=== PATIENT | female | born 1985 | race African-American/Black ===

== ENCOUNTER 2018-09-09 01:06 | Emergency (ER) | payer SELFPAY ==
[~2018-09-09] VITALS: Ht 167.6 cm; Wt 92.1 kg
--- OUTSIDE RECORDS SUMMARY | 2018-09-09 01:09 | XMS REPORT | Clinical Summary ---
Author Author [facility] Organization [facility] Address Unknown Phone Unavailable Care Team Providers Care Molecular Physicist Name Role Phone PCP Unavailable Allergies No Known Allergies Medications End Date Status Medication Sig Dispensed Refills Start Date Active acetaminophen (TYLENOL) Take 2 30 tablet 0 325 mg tabletIndications: tablets by 8 , unspecified mouth every 6 gestational age hours as needed for Pain. Active ibuprofen (MOTRIN) 600 mg Take 1 tablet 30 tablet 0 tabletIndications: by mouth 4 8 , unspecified times daily. gestational age Active ferrous sulfate (IRON) Take 1 tablet 90 tablet 2 325 mg (65 mg iron) by mouth 2 8 tabletIndications: Anemia times daily. affecting in third trimester 10/22/2017 simethicone (MYLICON) 80 Chew and 30 tablet 0 mg chewable swallow 1 8 tabletIndications: tablet by Colicky abdominal pain mouth every 6 hours as needed for up to 10 days for Flatulence. 01/12/2018 Discontinued vitamin Take 1 tablet 90 tablet 1 tabletIndications: by mouth 8 care in third daily trimester Pharmacist may select any Vitamin product covered on the patient's insurance for new rxs and refills. 01/12/2018 Discontinued ferrous sulfate (IRON) Take 1 tablet 90 tablet 2 325 mg (65 mg iron) by mouth 8 tabletIndications: Anemia daily (with affecting in breakfast). third trimester 01/12/2018 Discontinued acetaminophen (TYLENOL) Take 2 30 tablet 0 325 mg tabletIndications: tablets by 8 , unspecified mouth every 6 gestational age hours as needed for Pain. 01/12/2018 Discontinued diphenhydrAMINE Take 1 30 capsule 0 (BENADRYL) 50 mg capsule by 8 capsuleIndications: mouth every 4 , unspecified hours as gestational age needed for up to 10 days for Itching or rash. 01/12/2018 Discontinued docusate sodium (COLACE) Take 1 10 capsule 0 100 mg capsule by 8 capsuleIndications: mouth 2 times , unspecified daily for 10 gestational age days. 01/12/2018 Discontinued ferrous sulfate (IRON) Take 1 tablet 90 tablet 2 325 mg (65 mg iron) by mouth 2 8 tabletIndications: Anemia times daily. affecting in third trimester 01/12/2018 Discontinued ibuprofen (MOTRIN) 600 mg Take 1 tablet 30 tablet 0 tabletIndications: by mouth 4 8 , unspecified times daily. gestational age 0701/22/2018 diphenhydrAMINE Take 1 30 capsule 0 (BENADRYL) 50 mg capsule by 8 capsuleIndications: mouth every 4 , unspecified hours as gestational age needed for up to 10 days for Itching or rash. 01/22/2018 docusate sodium (COLACE) Take 1 10 capsule 0 100 mg capsule by 8 capsuleIndications: mouth 2 times , unspecified daily for 10 gestational age days. Active Problems Problem Noted Date 01/12/2018 screening encounter 11/23/2017 care in third trimester 11/22/2017 Resolved Problems Problem Noted Date Resolved Date Colicky abdominal pain 10/12/2017 01/12/2018 Encounters Care Team Description Date Type Specialty Zelalem Anders RN Mendoza-Moore, Suzanne Blanton RN 01/18/2018 Nurse Only Radha Aguilera SRNA Student 01/10/2018 Anesthesia Event Xenia Downs MD , unspecified gestational age (Primary Dx); Anemia affecting in third trimester 01/10/2018 Hospital - Encounter 01/12/2018 Hussein Cameron MD care in third trimester (Primary Dx); 39 weeks gestation of ; Itching 01/06/2018 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 Hussein Cameron MD care in third trimester (Primary Dx); 38 weeks gestation of ; Itching 12/30/2017 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 Hussein Camreon MD care in third trimester (Primary Dx); Itching; Anemia affecting in third trimester 12/23/2017 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 Jocelyne Herrera MD Eppes, Catherine S, MD screening for malformation using ultrasonics (Primary Dx); Late care 12/13/2017 Office Visit Obstetrics Mireille Webb MD care in third trimester (Primary Dx); Need for Tdap vaccination; Anemia affecting in third trimester; Itching 12/06/2017 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 Mireille Webb MD care in third trimester (Primary Dx); Itching 11/22/2017 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 Gloria Heart, MIGDALIA Hughes, Anamaria Jay RN screening encounter (Primary Dx) 11/16/2017 OB Zen Jacobs MD Colicky abdominal pain (Primary Dx) 10/12/2017 Hospital Obstetrics Encounter after 09/08/2017 Immunizations Name Dates Previously Given Next Due Tdap (Tetanus Toxoid, 12/06/2017 Reduced Diphtheria Toxoid And Acellular Pertussis, Absorbed) Family History Medical History Relation Name Comments No Known Problems Brother No Known Problems Brother No Known Problems Brother Hypertension Father Stroke Father No Known Problems Mother No Known Problems Sister No Known Problems Sister Relation Name Status Comments Brother Alive Brother Alive Brother Alive Father Alive Mother Alive Sister Alive Sister Alive Social History Date Tobacco Use Types Packs/Day Years Used Never Smoker Smokeless Tobacco: Never Used Alcohol Use Drinks/Week oz/Week Comments No Sex Assigned at Date Recorded Not on file Industry Job Start Date Occupation Not on file Not on file Not on file Travel End Travel History Travel Start No recent travel history available. Last Filed Vital Signs Time Taken Vital Sign Reading 01/18/2018 10:43 AM CDT Blood Pressure 104/65 01/18/2018 10:43 AM CDT Pulse 104 01/18/2018 10:43 AM CDT Temperature 37 C (98.6 F) 01/18/2018 10:43 AM CDT Respiratory Rate 18 01/11/2018 4:37 PM CDT Oxygen Saturation 98% - Inhaled Oxygen - Concentration 01/06/2018 8:51 AM CDT Weight 93.4 kg (206 lb) 01/06/2018 8:51 AM CDT Height 160 cm (5' 3") 01/06/2018 8:51 AM CDT Body Mass Index 36.49 Plan of Treatment Health Maintenance Due Date Last Done Comments Cervical Cancer Scrn (3 10/30/2007 Yrs) IMM Influenza Seasonal 04/03/2018 Oct to September (>/=19 yrs) Procedures Comments Procedure Name Priority Date/Time Associated Diagnosis CBC/DIFF STAT 01/12/2018 4:05 AM CDT HGB/HCT Routine 01/10/2018 9:53 AM CDT T PROT/CREA RATIO,UR STAT 01/10/2018 9:53 AM CDT UA CHEMISTRIES Routine 01/10/2018 9:53 AM CDT LDH STAT 01/10/2018 6:10 AM CDT CBC/DIFF STAT 01/10/2018 6:10 AM CDT UREA NITROGEN/CREA STAT 01/10/2018 6:10 AM CDT ALT/AST STAT 01/10/2018 6:10 AM CDT AST Routine 01/10/2018 2:42 AM CDT LDH STAT 01/10/2018 2:42 AM CDT DIFFERENTIAL STAT 01/10/2018 2:42 AM CDT UREA NITROGEN/CREA STAT 01/10/2018 2:42 AM CDT ALT STAT 01/10/2018 2:42 AM CDT RUBELLA, IGG STAT 01/10/2018 2:42 AM CDT CBC STAT 01/10/2018 2:42 AM CDT SYPHILIS SCREEN FOR STAT 01/10/2018 INFECTION 2:42 AM CDT HEP B IVY AG STAT 01/10/2018 2:42 AM CDT HIV-1/HIV-2 STAT 01/10/2018 SCREENING 2:42 AM CDT TYPE AND SCREEN STAT 01/10/2018 2:33 AM CDT ALT/AST Routine 12/30/2017 care in third 12:23 PM CDT trimester Itching BILE ACIDS Routine 12/30/2017 care in third 12:00 PM CDT trimester Itching POC URINE DIPSTICK, Routine 12/30/2017 38 weeks gestation of WITHOUT MICRO GROUP B STREP CULTURE Routine 12/23/2017 care in third 11:52 AM CDT trimester BT MFM Routine 12/13/2017 care in third REFERRAL-OUTPATIENT 10:12 AM CDT trimester GLU 1 HR POST 50GM Routine 12/06/2017 care in third 1:11 PM CDT trimester BILE ACIDS Routine 12/06/2017 Itching 9:52 AM CDT HGB FRACTIONATION Routine 12/06/2017 care in third 9:40 AM CDT trimester POC URINE DIPSTICK, Routine 12/06/2017 care in third WITHOUT MICRO trimester HPV HIGH-RISK Routine 11/22/2017 care in third 2:53 PM CDT trimester WET MOUNT Routine 11/22/2017 care in third 2:52 PM CDT trimester EMELY STAIN Routine 11/22/2017 care in third 2:52 PM CDT trimester TRICHOMONAS VAGINALIS Routine 11/22/2017 2:51 PM CDT CHLAM/GC DNA AMPLI Routine 11/22/2017 care in third 2:51 PM CDT trimester LIVER PROFILE Routine 11/22/2017 Itching 1:02 PM CDT HIV-1/HIV-2 Routine 11/22/2017 care in third SCREENING 1:02 PM CDT trimester HEP B IVY AG Routine 11/22/2017 care in third 1:02 PM CDT trimester SYPHILIS SCREEN FOR Routine 11/22/2017 care in third INFECTION 1:02 PM CDT trimester RUBELLA, IGG Routine 11/22/2017 care in third 1:02 PM CDT trimester CBC/DIFF Routine 11/22/2017 care in third 1:02 PM CDT trimester UA CHEMISTRIES Routine 11/22/2017 care in third 12:59 PM CDT trimester BILE ACIDS Routine 11/22/2017 Itching 12:58 PM CDT URINE CULTURE Routine 11/22/2017 care in third 12:58 PM CDT trimester WORKUP (ABO, RH Routine 11/22/2017 care in third AND SCREEN) 12:57 PM CDT trimester BTGH CYTOLOGY Routine 11/22/2017 12:21 PM CDT UA CHEMISTRIES STAT 10/12/2017 2:37 PM CDT LIPASE STAT 10/12/2017 2:37 PM CDT AMYLASE STAT 10/12/2017 2:37 PM CDT COMPREHENSIVE METABOLIC STAT 10/12/2017 PANEL(DBIL NOT INCLUDED) 2:37 PM CDT CBC/DIFF STAT 10/12/2017 2:37 PM CDT POCT URINE DIPSTICK Routine 10/12/2017 -URINE, PROTEIN, GLUCOSE; 1:50 PM CDT UA CHEM after 09/08/2017 Results * CBC/DIFF (01/12/2018 4:05 AM CDT) Only the most recent of 4 results within the time period is included. WBC 6.1 4.5 - 11.0 K/uL BT MAIN-STATION 2 RBC 2.98 (L) 4.20 - 5.40 M/uL BT MAIN-STATION 2 Hemoglobin 7.8 (L) 12.0 - 16.0 g/dL BT MAIN-STATION 2 Hematocrit 24.4 (L) 37.0 - 47.0 % BT MAIN-STATION 2 MCV 82 82 - 92 fL BT MAIN-STATION 2 MCH 26.2 (L) 27.0 - 32.0 pg BT MAIN-STATION 2 MCHC 32.0 32.0 - 36.0 g/dL BT MAIN-STATION 2 RDW 48.8 (H) 36.4 - 46.3 fL BT MAIN-STATION 2 Platelet 201 150 - 400 K/uL BT MAIN-STATION 2 Mean Platelet 11.3 9.4 - 12.4 fL BT MAIN-STATION Volume 2 Percent NRBC 0.3 BT MAIN-STATION 2 Absolute NRBC 0.02 BT MAIN-STATION 2 Neutrophil 54.9 34.0 - 70.0 % BT MAIN-STATION 2 Lymphocyte 37.2 20.0 - 50.0 % BT MAIN-STATION 2 Monocyte 6.4 5.0 - 12.0 % BT MAIN-STATION 2 Eosinophil 0.8 0.7 - 5.0 % BT MAIN-STATION 2 Basophil 0.2 0.1 - 1.2 % BT MAIN-STATION 2 Pct Immat Gran 0.5 0.0 - 0.5 BT MAIN-STATION 2 Neutrophil, Abs 3.36 1.56 - 6.13 K/uL BT MAIN-STATION 2 Lymphocyte, Abs 2.27 1.18 - 3.74 K/uL BT MAIN-STATION 2 Monocyte, Abs 0.39 (H) 0.24 - 0.36 K/uL BT MAIN-STATION 2 Eosinophil, Abs 0.05 0.04 - 0.36 K/uL BT MAIN-STATION 2 Basophil, Abs 0.01 0.01 - 0.08 K/uL BT MAIN-STATION 2 Absol Immat 0.03 0.00 - 0.03 K/uL BT MAIN-STATION Gran 2 Specimen Blood Performing Organization Address City/State/Zipcode Phone Number MISYS BT MAIN-STATION 2 * UA CHEMISTRIES (01/10/2018 9:53 AM CDT) Only the most recent of 3 results within the time period is included. Color Yellow BT MAIN-STATION 3 Clarity Clear BT MAIN-STATION 3 Spec [place] 1.026 1.001 - 1.035 BT MAIN-STATION 3 pH 6.0 5 - 8 BT MAIN-STATION 3 Protein 1+ (A) NEG BT MAIN-STATION 3 Glucose Negative NEG BT MAIN-STATION 3 Ketone Negative NEG BT MAIN-STATION 3 Bilirubin Negative NEG BT MAIN-STATION 3 Nitrate Negative NEG BT MAIN-STATION 3 Urobilinogen <1.0 0.2 - 1.0 EU/dL BT MAIN-STATION 3 Leukocyte Negative NEG BT MAIN-STATION 3 Blood 2+ (A) NEG BT MAIN-STATION 3 RBC 19 (H) 0 - 4 /HPF BT MAIN-STATION 3 WBC 1 0 - 5 /HPF BT MAIN-STATION 3 Epithelial Cell 1 /HPF BT MAIN-STATION 3 Mucous Present BT MAIN-STATION 3 Specimen Urine Performing Organization Address [facility] Phone Number [facility] BT MAIN-STATION 3 * T PROT/CREA RATIO,UR (01/10/2018 9:53 AM CDT) Creatinine, Ur 229.2 20 - 320 mg/dL BT MAIN-STATION 1 T Prot, Ur 0.72 g/L BT MAIN-STATION 1 T Prot/Crea 0.31 0.0 - 0.5 BT MAIN-STATION Ratio,Ur 1 Specimen Urine Performing Organization Address [facility] Phone Number [facility] * HGB/HCT (01/10/2018 9:53 AM CDT) Hemoglobin 8.6 (L) 12.0 - 16.0 g/dL BT MAIN-STATION 2 Hematocrit 27.1 (L) 37.0 - 47.0 % BT MAIN-STATION 2 Specimen Blood Performing Organization Address [facility] Phone Number [facility] BT [facility] 2 * LDH (01/10/2018 6:10 AM CDT) Only the most recent of 2 results within the time period is included. LDH 217 140 - 271 U/L BT MAIN-STATION 1 Specimen Blood Performing Organization Address [facility] Phone Number [facility] BT [facility] 1 * UREA NITROGEN/CREA (01/10/2018 6:10 AM CDT) Only the most recent of 2 results within the time period is included. Urea Nitrogen 8 7 - 25 mg/dL BT MAIN-STATION 1 Creatinine 0.70 0.6 - 1.2 mg/dL BT MAIN-STATION 1 GFR, Estimated >60 mL/min/1.73 m2 BT MAIN-STATION 1 GFR, Estim, >60 mL/min/1.73 m2 BT MAIN-STATION Afr-Am 1 Specimen Other (Specify in Comments) Performing Organization Address [facility] Phone Number [facility] BT MAIN-STATION 1 * ALT/AST (01/10/2018 6:10 AM CDT) Only the most recent of 2 results within the time period is included. ALT 13 7 - 52 U/L BT MAIN-STATION 1 AST 20 13 - 39 U/L BT MAIN-STATION 1 Specimen Blood Performing Organization Address [facility] Phone Number [facility] BT MAIN-STATION 1 * SYPHILIS SCREEN FOR INFECTION (01/10/2018 2:42 AM CDT) Only the most recent of 2 results within the time period is included. Treponemal Ab Negative BT DIAGNOSTIC IMMUNOLOGY Final Report Negative BT DIAGNOSTIC IMMUNOLOGY Performing Organization Address [facility] Phone Number [facility] BT [facility] IMMUNOLOGY * HIV-1/HIV-2 SCREENING (01/10/2018 2:42 AM CDT) Only the most recent of 2 results within the time period is included. HIV-1/HIV-2 Negative NEG BT MAIN-STATION 4 Performing Organization Address [facility] Phone Number [facility] BT [facility] 4 * DIFFERENTIAL (01/10/2018 2:42 AM CDT) Neutrophil 47.0 34.0 - 70.0 % BT MAIN-STATION 2 Lymphocyte 44.4 20.0 - 50.0 % BT MAIN-STATION 2 Monocyte 7.4 5.0 - 12.0 % BT MAIN-STATION 2 Eosinophil 0.5 (L) 0.7 - 5.0 % BT MAIN-STATION 2 Basophil 0.2 0.1 - 1.2 % BT MAIN-STATION 2 Pct Immat Gran 0.5 0.0 - 0.5 BT MAIN-STATION 2 Neutrophil, Abs 2.80 1.56 - 6.13 K/uL BT MAIN-STATION 2 Lymphocyte, Abs 2.64 1.18 - 3.74 K/uL BT MAIN-STATION 2 Monocyte, Abs 0.44 (H) 0.24 - 0.36 K/uL BT MAIN-STATION 2 Eosinophil, Abs 0.03 (L) 0.04 - 0.36 K/uL BT MAIN-STATION 2 Basophil, Abs 0.01 0.01 - 0.08 K/uL BT MAIN-STATION 2 Absol Immat 0.03 0.00 - 0.03 K/uL BT MAIN-STATION Gran 2 Performing Organization Address [facility] Phone Number [facility] BT MAIN-STATION 2 * HEP B IVY AG (01/10/2018 2:42 AM CDT) Only the most recent of 2 results within the time period is included. HBsAg Negative NEG BT MAIN-STATION 4 Specimen Blood Performing Organization Address [facility] Phone Number [facility] BT MAIN-STATION 4 * RUBELLA, IGG (01/10/2018 2:42 AM CDT) Only the most recent of 2 results within the time period is included. Rubella, IgG 6.9 BT DIAGNOSTIC Non-Immune: < 0.9 IMMUNOLOGY Equivocal: 0.9-0.99 Immune: >or=1.0 Specimen Blood Performing Organization Address [facility] Phone Number [facility] BT DIAGNOSTIC IMMUNOLOGY * CBC (01/10/2018 2:42 AM CDT) WBC 6.0 4.5 - 11.0 K/uL BT MAIN-STATION 2 RBC 4.24 4.20 - 5.40 M/uL BT MAIN-STATION 2 Hemoglobin 11.0 (L) 12.0 - 16.0 g/dL BT MAIN-STATION 2 Hematocrit 34.2 (L) 37.0 - 47.0 % BT MAIN-STATION 2 MCV 81 (L) 82 - 92 fL BT MAIN-STATION 2 MCH 25.9 (L) 27.0 - 32.0 pg BT MAIN-STATION 2 MCHC 32.2 32.0 - 36.0 g/dL BT MAIN-STATION 2 RDW 47.4 (H) 36.4 - 46.3 fL BT MAIN-STATION 2 Platelet 197 150 - 400 K/uL BT MAIN-STATION 2 Mean Platelet 11.7 9.4 - 12.4 fL BT MAIN-STATION Volume 2 Percent NRBC 0.0 BT MAIN-STATION 2 Absolute NRBC 0.00 BT MAIN-STATION 2 Specimen Blood Performing Organization Address [facility] Phone Number [facility] BT MAIN-STATION 2 * AST (01/10/2018 2:42 AM CDT) AST 23 13 - 39 U/L BT MAIN-STATION 1 Performing Organization Address [facility] Phone Number MISYS BT MAIN-STATION 1 * ALT (01/10/2018 2:42 AM CDT) ALT 16 7 - 52 U/L BT MAIN-STATION 1 Performing Organization Address [facility] Phone Number [facility] 1 * BILE ACIDS (12/30/2017 12:00 PM CDT) Only the most recent of 3 results within the time period is included. Bile Acids 8.7 LABORATORY Reference range: 4.7 to 24.5 CORPORATION OF Unit: umol/L IGNACIO (note) female reference interval (15 - 45 years):3.7 - 14.5 Specimen Blood Performing Organization Address [facility] Phone Number [facility] OF [address] [place] [address] IGNACIO 145 * POC URINE DIPSTICK, WITHOUT MICRO (12/30/2017) Only the most recent of 2 results within the time period is included. Color POC yellow - - - Clarity POC clear - - - Spec [place] 1.020 1.005 - 1.030 POC pH POC 6.5 5.0 - 7.0 Protein POC 1+ Neg - Neg Glucose POC negative Neg - Neg Ketone POC negative Neg - Neg Bilirubin POC negative Neg - Neg Nitrate POC negative Neg - Neg Urobilinogen 0.2 0.2 - 1.0 EU/dL POC Leukocyte POC negative Neg - Neg Blood POC negative Neg - Neg Specimen Urine * GROUP B STREP CULTURE (12/23/2017 11:52 AM CDT) Spec Vaginal_rectal M3 ([facility]) Description Order Comments None M3 ([facility]) Culture No Group B Streptococcus BT MICROBIOLOGY isolated Report Status Final 12/26/2017 BT MICROBIOLOGY Specimen Genital - VAGINAL/RECTAL Performing Organization Address [facility] Phone Number MISYS M3 ([facility]) BT MICROBIOLOGY * BT MFM REFERRAL-OUTPATIENT (12/13/2017 10:12 AM CDT) Narrative Performed At Click on View Image link for Result SMS Procedure Note Interface, Rad/Mammog In - 12/13/2017 12:04 PM CDT Click on View Image link for Result Performing Organization Address [facility] Phone Number SMS * GLU 1 HR POST 50GM (12/06/2017 1:11 PM CDT) Glu 1Hr Post 100 <140 mg/dL BT MAIN-STATION 50gm 1 Specimen Blood Performing Organization Address [facility] Phone Number [facility] BT MAIN-STATION 1 * HGB FRACTIONATION (12/06/2017 9:40 AM CDT) Hemoglobin A 97.8 96.0 - 98.6 % BT BLOOD BANK Hemoglobin F None detected <2 % BT BLOOD BANK Hemoglobin S Absent % BT BLOOD BANK Hemoglobin A2 2.2 2.2 - 3.7 % BT BLOOD BANK Hemoglobin C Absent % BT BLOOD BANK Interpretation (note) BT BLOOD BANK Hemoglobin capillary electrophoresis and RBC indices are reviewed. NO VARIANT HEMOGLOBIN ORTHALASSEMIA DETECTED. Reviewed and electronically signed by: Leeanna Reid MD/ [id number] CPT: 97663 Specimen Blood Performing Organization Address [facility] Phone Number [facility] * HPV HIGH-RISK (11/22/2017 2:53 PM CDT) HPV High Risk Negative NEG BT DIAGNOSTIC Comment: IMMUNOLOGY The APTIMA HPV Assay is an in vitro nucleic acid amplification test for the qualitative detection of E6/E7 viral messenger RNA (mRNA) from 14 high-risk types of human papillomavirus (HPV) in cervical specimens. The high-risk HPV types detected by the assay include: 16,18,31,33,35,39,45,51,52,56, 58,59,66, and 68. CoPath Spec [id number] BT MOLECULAR Number PATHOLOGY Performing Organization Address [facility] Phone Number [facility] BT DIAGNOSTIC IMMUNOLOGY BT MOLECULAR PATHOLOGY * WET [place] (11/22/2017 2:52 PM CDT) Spec Vaginal M3 ([facility]) Description Order Comments None M3 ([facility]) Exam Bacteria present M2 ([facility]) WBC's seen Epithelial cells Report Status Final 11/24/2017 M2 ([facility]) Specimen Genital, vaginal - Vaginal Performing Organization Address [facility] Phone Number MISYS M3 ([facility]) M2 ([facility]) * EMELY STAIN (11/22/2017 2:52 PM CDT) Spec Vaginal M3 ([facility]) Description Order Comments None M3 ([facility]) Direct Exam No fungus seen by EMELY M2 ([facility]) Report Status Final 11/24/2017 M2 ([facility]) Specimen Genital, vaginal - Vaginal Performing Organization Address [facility] Phone Number MISYS M3 ([facility]) M2 ([facility]) * TRICHOMONAS VAGINALIS (11/22/2017 2:51 PM CDT) Trich Vaginalis Negative BT DIAGNOSTIC This test utilizes FDA cleared IMMUNOLOGY APTIMA Trichomonasvaginalis Assay by TMA from [employer] for qualitative nucleic acid amplification test (NAAT) for the detection of ribosome RNA (rRNA) from Trichomonas vaginalis. SPEC Endovervical M3 ([facility]) DESCRIPTION Specimen Cervix Performing Organization Address [facility] Phone Number MISYS BT DIAGNOSTIC IMMUNOLOGY M3 ([facility]) * CHLAM/GC DNA AMPLI (11/22/2017 2:51 PM CDT) Chlamydia trach Negative BT MOLECULAR PATHOLOGY N gonorrhoeae Negative BT MOLECULAR This test utilizes [employer] PATH[employer]Y Aptima Combo 2 Assay for target amplification of rRNA for the qualitative detection of Chlamydia trachomatis and Neisseria gonorrhea. Spec Endovervical M3 ([facility]) Description Specimen Cervix - Endocervical Swab Performing Organization Address [facility] Phone Number MISYS BT MOLECULAR PATHOLOGY M3 ([facility]) * LIVER PROFILE (11/22/2017 1:02 PM CDT) T Protein 6.8 6.0 - 8.3 g/dL BT MAIN-STATION 1 Albumin 3.3 (L) 3.7 - 5.3 g/dL BT MAIN-STATION 1 T Bilirubin 0.5 0.2 - 1.2 mg/dL BT MAIN-STATION 1 Alk Phos 103 34 - 104 U/L BT MAIN-STATION 1 AST 17 13 - 39 U/L BT MAIN-STATION 1 ALT 11 7 - 52 U/L BT MAIN-STATION 1 D Bilirubin 0.1 0.0 - 0.2 mg/dL BT MAIN-STATION 1 Specimen Blood Performing Organization Address [facility] Phone Number MISYS BT MAIN-STATION 1 * URINE CULTURE (11/22/2017 12:58 PM CDT) Spec Clean catch urine M3 ([facility]) Description Order Comments None M3 ([facility]) Culture No growth 2 days BT MICROBIOLOGY Report Status Final 11/25/2017 BT MICROBIOLOGY Specimen Urine clean catch - CLEAN CATCH URINE Performing Organization Address [facility] Phone Number MISYS M3 ([facility]) BT MICROBIOLOGY * BTGH CYTOLOGY (11/22/2017 12:21 PM CDT) HX FINAL Cervicovaginal (liquid-based COPATH DIAGNOSIS preparation): Satisfactory for evaluation No presence of endocervical/transformation zone Negative for intraepithelial lesion or malignancy Atrophy without inflammation Narrative Performed At [facility] Date of 1985 Hospital Number [id number] Location [facility] (OP) CYTOPATHOLOGY Collected:11/22/2017 12:21 Received: 11/23/2017 11:53 FINAL DIAGNOSIS Cervicovaginal (liquid-based preparation): Satisfactory for evaluation No presence of endocervical/transformation zone Negative for intraepithelial lesion or malignancy Atrophy without inflammation Electronically Signed Out By Adrienne Bui Clinical History Date of Last Menstrual Period: 04/07/2017 Menstrual History: Pregnancies: A0 Specimen Received: One ThinPrep Vial Educational Note: The pap smear/test is a screening test for cervical cancer.As with screening procedures, both false negative and false positive results may occur.Hence, the results should be interpreted in the context of patient's history and current clinical information. The slide has been analyzed by the automated ThinPrep Imaging System, [employer], [place], [place]. Performing Organization Address [facility] Phone Number [place], [place] * COMPREHENSIVE METABOLIC PANEL(DBIL NOT INCLUDED) (10/12/2017 2:37 PM CDT) Albumin 2.7 (L) 3.4 - 5.0 g/dL [facility] 1 Calcium 7.8 (L) 8.50 - 10.20 mg/dL [facility] 1 CO2 23 21 - 32 mmol/L [facility] 1 Chloride 106 98 - 107 mmol/L [facility] 1 Creatinine 0.48 (L) 0.60 - 1.30 mg/dL [place] [address] Glucose 70 70 - 99 mg/dL [facility] Alk Phos 82 45 - 117 U/L [place] [address] Potassium 3.5 3.50 - 5.10 mmol/L [place] [address] Sodium 136 136 - 145 mmol/L [place] [address] ALT 15 12 - 78 U/L [facility] 1 AST 23 15 - 37 U/L [facility] 1 Urea Nitrogen 4 (L) 7 - 18 mg/dL [place] [address] T Bilirubin 0.2 0.2 - 1.0 mg/dL [place] [address] T Protein 6.6 6.4 - 8.2 g/dL [place] [address] GFR, Estimated >60 mL/min/1.73 m2 [place] [address] GFR, Estim, >60 mL/min/1.73 m2 [facility] 1 Anion Gap 7 [facility] 1 Specimen Blood Performing Organization Address [facility] Phone Number [facility] 1 * LIPASE (10/12/2017 2:37 PM CDT) Lipase 243 73 - 393 U/L [facility] 1 Specimen Blood Performing Organization Address [facility] Phone Number [facility] 1 * AMYLASE (10/12/2017 2:37 PM CDT) Amylase 97 25 - 115 U/L [place] [address] Specimen Blood Performing Organization Address [facility] Phone Number [facility] 1 * POCT URINE DIPSTICK -URINE, PROTEIN, GLUCOSE; UA CHEM (10/12/2017 1:50 PM CDT) Color AMB Clarity CLEAR Spec [place] --- pH 6.5 Protein 30MG Glucose NEGATIVE Ketone TRACE Bilirubin ----- Nitrate NEGATIVE Protein 30MG Leukocyte NEGATIVE Blood TRACE Specimen Urine after 09/08/2017 Insurance Type Payer Benefit Subscriber ID Effective Phone Address Plan / Dates Group PENDING PENDING xxxxxxxxx 2018- [phone] [address] Present [id number] [employer] [place] [address] [employer] SELF-PAY [employer] PLAN xxxxxxx 2018-6 [address] [place] [address] [employer] SELF-PAY [employer] xxxxxxxxx 2018- [phone] [address] [place] [address] Advance Directives For more information, please contact: [address] [address] Date Inactivated Comments Code Status Date Activated 01/12/2018 8:51 PM Full Code 01/10/2018 6:07 AM 01/10/2018 2:35 AM Full Code 01/10/2018 2:32 AM
--- OUTSIDE RECORDS SUMMARY | 2018-09-09 01:10 | XMS REPORT ---
Author 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 Allergies, Adverse Reactions, Alerts This patient has no known allergies or adverse reactions. Medications This patient has no known medications. Encounters Start Date/Time End Date/Time Encounter Type Admission Type Attending [facility] Facility Care Department Encounter ID 2018-01-10 21:00:03 Inpatient [facility] [id number] 2018-02-20 00:00:00 2018-02-20 00:00:00 Outpatient [facility] [id number] 2018-01-23 00:00:00 2018-01-23 00:00:00 Outpatient [facility] [id number] 2018-01-18 10:31:08 2018-01-18 10:31:08 Outpatient [facility] [id number] 2018-01-13 00:00:00 2018-01-13 00:00:00 Outpatient [facility] [id number] 2018-01-10 02:30:30 2018-01-10 02:30:30 Inpatient [facility] [id number] 2018-01-06 08:51:22 2018-01-06 08:51:22 Outpatient [facility] [id number] 2017-12-30 11:56:26 2017-12-30 11:56:26 Outpatient [facility] [id number] 2017-12-30 11:13:47 2017-12-30 11:13:47 Outpatient [facility] [id number] 2017-12-23 11:39:41 2017-12-23 11:39:41 Outpatient [facility] [id number] 2017-12-23 00:00:00 2017-12-23 00:00:00 Outpatient [facility] [id number] 2017-12-19 00:00:00 2017-12-19 00:00:00 Outpatient [facility] [id number] 2017-12-13 10:12:53 2017-12-13 10:12:53 Outpatient [facility] [id number] 2017-12-06 11:43:13 2017-12-06 11:43:13 Outpatient [facility] [id number] 2017-12-06 09:38:33 2017-12-06 09:38:33 Outpatient [facility] [id number] 2017-11-22 13:02:11 2017-11-22 13:02:11 Outpatient [facility] [id number] 2017-11-22 11:53:03 2017-11-22 11:53:03 Outpatient [facility] [id number] 2017-11-16 14:08:40 2017-11-16 14:08:40 Outpatient [facility] [id number] 2017-11-02 00:00:00 2017-11-02 00:00:00 Outpatient [facility] [id number] 2017-10-12 13:15:00 2017-10-12 13:15:00 Outpatient [facility] [id number]
[2018-09-09] MEDS ORDERED: SODIUM CHLORIDE 0.9% 1000ML 1,000 ML IV STA (01:18)
[2018-09-09] MEDS ORDERED: ONDANSETRON HCL INJ 2MG/ML 2ML 2 MG/ML VIAL IV STA (01:18)
[2018-09-09] MEDS ORDERED: MORPHINE SULFATE INJ 4 MG/ML INJ 1ML IV PRN (01:30)
--- NOTE | 2018-09-09 02:32 | Diagnostic Imaging Report ---
EXAM: CT Abdomen and Pelvis WITH contrast INDICATION: Abdominal pain. COMPARISON: None. TECHNIQUE: Abdomen and pelvis were scanned utilizing a multidetector helical scanner from the lung base to the pubic symphysis after administration of IV contrast. Coronal and sagittal reformations were obtained. Routine protocol was performed. Scan was performed when during portal venous phase. IV CONTRAST: 99 mL of Isovue 370 ORAL CONTRAST: Water COMPLICATIONS: None RADIATION DOSE: Total DLP: 857.4 mGy*cm Estimated effective dose: (DLP x 0.015 x size factor) mSv Dose modulation, iterative reconstruction, and/or weight based adjustment of the mA/kV was utilized to reduce the radiation dose to as low as reasonably achievable. FINDINGS: LINES and TUBES: None. LOWER THORAX: Unremarkable HEPATOBILIARY: No focal hepatic lesions. No biliary ductal dilation. GALLBLADDER: Punctate dependent stone. Gallbladder distended without hydrops. No wall thickening or adjacent stranding. SPLEEN: No splenomegaly. PANCREAS: No focal masses or ductal dilatation. ADRENALS: No adrenal nodules KIDNEYS/URETERS: Kidneys enhance symmetrically. No hydronephrosis. No cystic or solid mass lesions. No stones. GI TRACT: No abnormal distention, wall thickening, or evidence of bowel obstruction. Appendix is normal. PELVIC ORGANS/BLADDER: Unremarkable. LYMPH NODES: No lymphadenopathy. VESSELS: Unremarkable. PERITONEUM / RETROPERITONEUM: Small amount of free fluid in the pelvis. No free air. BONES: Unremarkable. SOFT TISSUES: Unremarkable. IMPRESSION: 1. Cholelithiasis without CT evidence of acute cholecystitis. 2. No acute abnormalities. Signed by: DR. Panfilo Wilson MD on 09/09/2018 2:29 AM
== END 2018-09-09 03:15 | disposition home or self-care (01) ==
LOC: FSED 01:06
DX: R10.13 Epigastric pain (principal); R11.0 Nausea; K80.70 Calculus of gallbladder and bile duct without cholecystitis without obstruction
CPT/HCPCS: 74177; 80053; 81003; 81025; 85025; 99283; J7030